=== PATIENT | female | born 1980 | race Caucasian/White ===

== ENCOUNTER 2017-02-03 02:14 | Emergency (ER) | payer SELFPAY ==
[2017-02-03 02:32] VITALS: BP 120/80; PULSE 87; TEMP 97.9; BMI 31.1
--- NOTE | 2017-02-03 02:53 | PDOC ---
History of Present Illness - General History Source: Patient Exam Limitations: No Limitations - History of Present Illness Travel History: No Initial Comments: 02/03/17 03:18 36-year-old female with a history of diverticulitis presents to the emergency department complaining of right-sided flank pain with urinary freq. Pain is described as 5/10 sharp intermittent discomfort which radiates to the right groin without nausea/vomiting, fever/chills/diarrhea, chest pain, shortness of breath, urinary symptoms: urgency/hesitancy, burning upon urination. Timing/Duration: reports: intermittent Abdominal Pain Onset Location: reports: flank (right) <Gopi Camacho - Last Filed: 02/03/17 06:07> <Kaila Stratton - Last Filed: 02/03/17 23:13> - General Chief Complaint: Pain, Acute Stated Complaint: ABD PAIN, BACK PAIN Time Seen by Provider: 02/03/17 02:23 Past History - Past Medical History Asthma: No Cancer: No Cardiac Disorders: No Diabetes: No GI Disorders: Yes (diverticulitis) HTN: No Seizures: No Thyroid Disease: No - Reproductive History (#): 2 Para: 0 Therapeutic (s) & number: Yes (1) - Immunization History Immunization Up to Date: Yes - Psycho/Social/Smoking Cessation Hx Anxiety: No Suicidal Ideation: No Smoking History: Current every day smoker Have you smoked in the past 12 months: Yes Number of Cigarettes Smoked Daily: 10 If you are a former smoker, when did you quit?: 3 months ago Information on smoking cessation initiated: No 'Breaking Loose' booklet given: 06/27/16 Hx Alcohol Use: No Drug/Substance Use Hx: No Substance Use Type: None Hx Substance Use Treatment: No <Gopi Camacho - Last Filed: 02/03/17 06:07> <Kaila Stratton - Last Filed: 02/03/17 23:13> - Past Medical History Allergies/Adverse Reactions: Allergies Allergy/AdvReac Type Severity Reaction Status Date / Time ibuprofen [From Motrin] Allergy Verified 02/03/17 02:30 Home Medications: Ambulatory Orders Nitrofurantoin Monohyd/M-Cryst [Macrobid -] 100 mg PO BID #14 capsule 02/03/17 Review of Systems - Review of Systems Able to Perform ROS?: Yes Comments:: 02/03/17 03:19 CONSTITUTIONAL: Absent: fever, chills, diaphoresis, generalized weakness, malaise, loss of appetite HEENT: Absent: rhinorrhea, nasal congestion, throat pain, throat swelling, difficulty swallowing, mouth swelling, ear pain, eye pain, visual Changes CARDIOVASCULAR: Absent: chest pain, loss of consciousness, palpitations, irregular heart rate, peripheral edema RESPIRATORY: Absent: cough, shortness of breath, dyspnea with exertion, orthopnea, wheezing, stridor, hemoptysis GASTROINTESTINAL: +suprapubic pain/bladder discomfort Absent: abdominal pain, abdominal distension, nausea, vomiting, diarrhea, constipation, melena, hematochezia GENITOURINARY: Absent: dysuria, frequency, urgency, hesitancy, hematuria, flank pain, genital pain MUSCULOSKELETAL: Absent: myalgia, arthralgia, joint swelling SKIN: Absent: rash, itching, pallor HEMATOLOGIC/IMMUNOLOGIC: Absent: easy bleeding, easy bruising, lymphadenopathy, frequent infections ENDOCRINE: Absent: unexplained weight gain, unexplained weight loss, heat intolerance, cold intolerance NEUROLOGIC: Absent: headache, focal weakness or paresthesias, dizziness, unsteady gait, seizure, mental status changes, bladder or bowel incontinence PSYCHIATRIC: Absent: anxiety, depression, suicidal or homicidal ideation, hallucinations. Is the patient limited Yakut proficient: No <Gopi Camacho - Last Filed: 02/03/17 06:07> *Physical Exam - Vital Signs Last Vital Signs Temp Pulse Resp BP Pulse Ox 97.9 F 87 18 120/80 97 02/03/17 02:28 02/03/17 02:28 02/03/17 02:28 02/03/17 02:28 02/03/17 02:28 - Physical Exam Comments: 02/03/17 03:19 GENERAL: Well developed, well nourished. Awake and alert. No acute distress. HEENT: Normocephalic, atraumatic. PERRLA, EOMI. No conjunctival pallor. Sclera are non- icteric. Moist mucous membranes. Oropharynx is clear. NECK: Supple. Full ROM. No JVD. Carotid pulses 2+ and symmetric, without bruits. No thyromegaly. No lymphadenopathy. CARDIOVASCULAR: Regular rate and rhythm. No murmurs, rubs, or gallops. Distal pulses are 2+ and symmetric. PULMONARY: No evidence of respiratory distress. Lungs clear to auscultation bilaterally. No wheezing, rales or rhonchi. ABDOMINAL: Soft. Non-tender. Non-distended. No rebound or guarding. No organomegaly. Normoactive bowel sounds. MUSCULOSKELETAL Normal range of motion at all joints. No bony deformities or tenderness. No CVA tenderness. EXTREMITIES: No cyanosis. No clubbing. No edema. No calf tenderness. SKIN: Warm and dry. Normal capillary refill. No rashes. No jaundice. NEUROLOGICAL: Alert, awake, appropriate. Cranial nerves 2-12 intact. No deficits to light touch and temperature in face, upper extremities and lower extremities. No motor deficits in the in face, upper extremities and lower extremities. Normoreflexic in the upper and lower extremities. Normal speech. Toes are down- going bilaterally. Gait is normal without ataxia. PSYCHIATRIC: Cooperative. Good eye contact. Appropriate mood and affect. <Gopi Camacho - Last Filed: 02/03/17 06:07> - Vital Signs Last Vital Signs Temp Pulse Resp BP Pulse Ox 97.9 F 87 18 120/80 97 02/03/17 02:28 02/03/17 02:28 02/03/17 02:28 02/03/17 02:28 02/03/17 02:28 <Kaila Stratton - Last Filed: 02/03/17 23:13> ED Treatment Course - LABORATORY CBC & Chemistry Diagram: 02/03/17 02:55 02/03/17 03:58 - RADIOLOGY Radiograph Interpretation: 02/03/17 05:49 There is no evidence of the struck this urolithiasis. There is no evidence of hydronephrosis or hydroureter ureter. There is questionable gallbladder wall thickening. There is mild hepatomegaly. <Gopi Camacho - Last Filed: 02/03/17 06:07> - LABORATORY CBC & Chemistry Diagram: 02/03/17 02:55 02/03/17 03:58 - ADDITIONAL ORDERS Additional order review: Laboratory Results 02/03/17 02/03/17 02/03/17 03:58 02:55 02:55 Sodium 141 Cancelled Potassium 4.1 Cancelled Chloride 105 Cancelled Carbon Dioxide 25 Cancelled Anion Gap 11 Cancelled BUN 14 D Cancelled Creatinine 0.7 Cancelled Creat Clearance w eGFR > 60 Cancelled Random Glucose 103 D Cancelled Calcium 8.5 Cancelled Total Bilirubin 0.4 D Cancelled AST 18 D Cancelled ALT 27 D Cancelled Alkaline Phosphatase 76 Cancelled Total Protein 6.8 Cancelled Albumin 3.6 Cancelled Urine Color Ltyellow Urine Appearance Clear Urine pH 6.0 Urine Protein Negative Urine Glucose (UA) Negative Urine Ketones Negative Urine Blood 3+ H Urine Nitrite Negative Urine Bilirubin Negative Urine Urobilinogen Negative Ur Leukocyte Esterase 2+ H Urine RBC 2 Urine WBC 16 Ur Epithelial Cells Rare Urine Bacteria Rare Urine HCG, Qual 02/03/17 02:55 Sodium Potassium Chloride Carbon Dioxide Anion Gap BUN Creatinine Creat Clearance w eGFR Random Glucose Calcium Total Bilirubin AST ALT Alkaline Phosphatase Total Protein Albumin Urine Color Urine Appearance Urine pH Urine Protein Urine Glucose (UA) Urine Ketones Urine Blood Urine Nitrite Urine Bilirubin Urine Urobilinogen Ur Leukocyte Esterase Urine RBC Urine WBC Ur Epithelial Cells Urine Bacteria Urine HCG, Qual Negative 02/03/17 02:55 RBC 4.56 MCV 91.9 MCHC 33.5 RDW 12.4 MPV 12.7 H Neutrophils % 62.7 Lymphocytes % 25.9 Monocytes % 6.8 Eosinophils % 4.0 Basophils % 0.6 - Medications Given in the ED: ED Medications Discontinued Medications Generic Name Dose Route Start Last Admin Trade Name Freq PRN Reason Stop Dose Admin Sodium Chloride 1,000 mls @ 1,000 mls/hr 02/03/17 02:55 02/03/17 03:11 Normal Saline - IV 02/03/17 03:54 1,000 mls/hr ASDIR STA Administration Morphine Sulfate 2 mg 02/03/17 03:53 02/03/17 04:21 Morphine Injection - IVPUSH 02/03/17 03:54 2 mg ONCE ONE Administration <Kaila Stratton - Last Filed: 02/03/17 23:13> Progress Note - Progress Note Progress Note: Spoke to Dr. Tavarez from [facility] he states no evidence of diverticulitis, normal appendix, no free fluid in the pelvis, no free air. <Gopi Camacho - Last Filed: 02/03/17 06:07> Medical Decision Making - Medical Decision Making 02/03/17 05:53 Patient Name: Verito Kaur THIS IS A PRELIMINARY REPORT FROM [facility] Exam: CT of the abdomen, CT of the pelvis without intravenous and without oral contrast. Images: [id number] Date of service 2017-02-03 05:16:37.0 Comparison: None Indication: Renal colic IMPRESSION: 1. There is no evidence of destructive urolithiasis. There is no evidence of hydronephrosis or hydroureter. 2. There is questionable gallbladder wall thickening. 3. There is mild hepatomegaly. Clinical correlation and followup evaluation is advised. THIS DOCUMENT HAS BEEN ELECTRONICALLY SIGNED 02/03/17 23:[address] was re-read by our radiologist as edema of the GB wall. I called and left a message on pt's home telephone letting her know this and telling her to return for fever or RUQ pain or vomiting. <Kaila Stratton - Last Filed: 02/03/17 23:13> *DC/Admit/Observation/Transfer - Discharge Dispostion Admit: No <Gopi Camacho - Last Filed: 02/03/17 06:07> <Kaila Stratton - Last Filed: 02/03/17 23:13> Diagnosis at time of Disposition: Thickening of wall of gallbladder Abdominal pain Qualifiers: Abdominal location: unspecified location Qualified Code(s): R10.9 - Unspecified abdominal pain UTI (urinary tract infection) Qualifiers: Urinary tract infection type: acute cystitis Hematuria presence: with hematuria Qualified Code(s): N30.01 - Acute cystitis with hematuria - Prescriptions Prescriptions: Nitrofurantoin Monohyd/M-Cryst [Macrobid -] 100 mg PO BID #14 capsule - Referrals Referrals: Simone Davis MD [Staff Physician] - Laith Barlow DO [Staff Physician] - - Patient Instructions Printed Discharge Instructions: DI for Urinary Tract Infection (UTI), DI for Abdominal Pain-Adult Additional Instructions: Rest Follow up with your physician and the general surgeon listed below along with the road consultant Return to the ER for severe/persistent or worsening symptoms
[2017-02-03] MEDS ORDERED: SODIUM CHLORIDE 1,000 ML IV STA (02:55)
[2017-02-03 03:06] LABS: URINE APPEARANCE CLEAR; URINE BILIRUBIN NEGATIVE (NEGATIVE); URINE COLOR LTYELLOW; URINE GLUCOSE (UA) NEGATIVE (NEGATIVE); URINE KETONE NEGATIVE (NEGATIVE); URINE NITRITE NEGATIVE (NEGATIVE); URINE PROTEIN NEGATIVE (NEGATIVE); URINE UROBILINOGEN NEGATIVE E.U./dl (0.2-1.0)
[2017-02-03 03:09] LABS: URINE BLOOD 3+ (NEGATIVE); URINE LEUK ESTERASE 2+ (NEGATIVE)
[2017-02-03 03:10] LABS: BASOPHIL 0.6 % (0-2.0); MCH 30.8 pg (25.7-33.7); MCHC 33.5 g/dl (32.0-36.0); MEAN CELL VOLUME 91.9 fl (80-96); MEAN PLT VOLUME 12.7 fl (7.5-11.1); NEUTROPHILS 62.7 % (42.8-82.8); PLATELET COUNT 136 K/MM3 (134-434); RDW 12.4 % (11.6-15.6); WHITE BLOOD COUNT 11.6 K/mm3 (4.0-10.0)
[2017-02-03 03:14] LABS: URINE BACTERIA RARE /hpf (NONE SEEN); URINE RBC 2 /hpf (0-3); URINE WBC 16 /hpf (3-5)
[2017-02-03] MEDS ORDERED: morphine CARPU-JECT 2 MG/1 ML DISP.SYRIN IVPUSH ONE (03:53)
[2017-02-03] MEDS ORDERED: morphine CARPU-JECT 2 MG/1 ML DISP.SYRIN ONE (04:16)
[2017-02-03 04:42] LABS: ALBUMIN 3.6 g/dl (3.4-5.0); ALK PHOS 76 U/L (45-117); ANION GAP 11 (8-16); BILIRUBIN,TOTAL 0.4 mg/dL (0.2-1.0); CALCIUM 8.5 mg/dL (8.5-10.1); CO2 25 mmol/L (21-32); CREATININE 0.7 mg/dL (0.55-1.02); GLUCOSE,RANDOM 103 mg/dL (74-106); SGOT/AST 18 U/L (15-37); SGPT/ALT 27 U/L (12-78); TOT PROT 6.8 g/dl (6.4-8.2)
[2017-02-03] MEDS ORDERED: NITROFURANTOIN MACROCRYSTAL 50 MG CAPSULE (FP) PO SCH (06:15)
[2017-02-03] MEDS ORDERED: NITROFURANTOIN MACROCRYSTAL 50 MG CAPSULE (FP) ONE (06:23)
== END 2017-02-03 06:22 | disposition home or self-care (01) ==
LOC: JER 02:14
PROC: 3E0337Z Introduction of Electrolytic and Water Balance Substance into Peripheral Vein, Percutaneous Approach (ICD-10-PCS; principal; 2017-02-03)
PROC: 3E033NZ Introduction of Analgesics, Hypnotics, Sedatives into Peripheral Vein, Percutaneous Approach (ICD-10-PCS; 2017-02-03)
DX: N30.01 Acute cystitis with hematuria (principal); K82.8 Other specified diseases of gallbladder
CPT/HCPCS: 36415; 74176-TC; 80053; 81003; 81015; 84703; 85025; 99282-25